=== PATIENT | female | born 1960 | race Caucasian/White ===

== ENCOUNTER → 2016-09-30 | Outpatient (CLI) | payer BC ==
--- NOTE | 2016-10-03 14:34 | CR ---
EXAM DATE: 09/30/16 PATIENT'S AGE: 56 Patient: MORENA COLE Facility: [place], [place] Site . Site : [id number] Study: XRay Extremity forearm [id number] 4:11:57 PM Ordering Physician: Marisa Villegas Final Report: Indication: Yearly follow-up benign giant cell tumor. Technique: Right forearm three views. Comparison: 06/25/2015. Findings: Altered morphology of the mid to distal 3rd of the radial diaphysis likely representing resection of giant cell tumor has not significantly changed. Ventral plate and screw fixation of the radius shows no evidence of complication. No new lytic or sclerotic osseous lesion. Degenerative changes of the radiocarpal joint as before. Impression: Stable appearing resection and postoperative changes of the radius. . Dictated by Andrea Guadarrama MD @ Sep 30 2016 8:27PM (Electronic Signature) Report Signed by Proxy. ADE[facility]
== END ==
LOC: MW.DI 15:55
PROVIDERS: ATTEND Orthopaedic Surgery
DX: D16.9 Benign neoplasm of bone and articular cartilage, unspecified (principal)
CPT/HCPCS: 73090-26-RT; 73090-RT